=== PATIENT | female | born 1970 | race Caucasian/White ===

== ENCOUNTER 2017-10-29 10:08 | Emergency (ER) | payer MEDICAID ==
[~2017-10-29] VITALS: Ht 160 cm; Wt 81.8 kg
[~2017-10-29 10:08] MED LIST: CYCL-1 PO; NAPR-56 PO; NO HOME MEDS; ONDA4TAB12 PO
[2017-10-29 10:21] VITALS: BP 151/97
== END 2017-10-29 11:21 | disposition home or self-care (01) ==
LOC: ER 10:08
DX: S93.401A Sprain of unspecified ligament of right ankle, initial encounter (principal); I10 Essential (primary) hypertension; Z79.899 Other long term (current) drug therapy; X50.1XXA Overexertion from prolonged static or awkward postures, initial encounter; Y93.01 Activity, walking, marching and hiking; Y92.89 Other specified places as the place of occurrence of the external cause; Y99.8 Other external cause status
CPT/HCPCS: 73610; 73630; 99284; L4360

== ENCOUNTER 2021-07-22 00:59 | Emergency (ER) | payer MEDICAID ==
[~2021-07-22] VITALS: Ht 160 cm; Wt 81.8 kg
[2021-07-22 01:29] LABS: CLARITY,URINE SLIGHTLY CLOUDY (Clear); GLUCOSE, URINE NEGATIVE (Neg); KETONES,URINE NEGATIVE (Neg); LEUKOCYTE ESTERASE ,URINE LARGE (Neg); NITRITES, URINE POSITIVE (Neg); OCCULT BLOOD,URINE LARGE (Neg); PROTEIN,URINE 100 mg/dl (Neg)
[2021-07-22 01:36] LABS: COLOR,URINE DARK YELLOW (Yellow); UA COLLECTION TYPE CLN CATCH MIDSTREAM
[2021-07-22 01:37] LABS: WBC,URINE TNTC /HPF (0-4)
[2021-07-22 01:38] LABS: BACTERIA,URINE 3+ /HPF (Neg); MUCUS STRANDS NONE SEEN /LPF (Neg); RBC,URINE 20-50 /HPF (0-2); SQUAMOUS EPITHELIAL CELL,UR FEW /LPF (FEW); TRANSITIONAL EPI CELLS,URINE FEW /HPF; WBC CLUMPS,URINE MODERATE /HPF (NEGATIVE)
[2021-07-22] MEDS ORDERED: cephalexin 500mg capsule PO ONE (02:40)
[2021-07-22] MEDS ORDERED: CEPH-585 PO (02:41)
[2021-07-22 02:50] VITALS: BP 162/88
== END 2021-07-22 02:52 | disposition home or self-care (01) ==
LOC: ER 01:00
DX: N39.0 Urinary tract infection, site not specified (principal); R10.84 Generalized abdominal pain; R30.9 Painful micturition, unspecified; I10 Essential (primary) hypertension; Z98.51 Tubal ligation status; Z98.890 Other specified postprocedural states; Z72.89 Other problems related to lifestyle; Z79.899 Other long term (current) drug therapy
CPT/HCPCS: 81001; 87077; 87088; 87186; 99283

== ENCOUNTER 2023-07-24 07:38 | Emergency (ER) | payer MEDICAID ==
[~2023-07-24] VITALS: Ht 160 cm; Wt 69.5 kg
[2023-07-24 08:05] VITALS: BP 157/87; PULSE 79; RESP 14; O2SAT 100
[2023-07-24 10:01] LABS: BILIRUBIN,URINE NEGATIVE (Neg); CLARITY,URINE SLIGHTLY CLOUDY (Clear); COLOR,URINE YELLOW (Yellow); GLUCOSE, URINE NEGATIVE (Neg); KETONES,URINE NEGATIVE (Neg); LEUKOCYTE ESTERASE ,URINE NEGATIVE (Neg); NITRITES, URINE NEGATIVE (Neg); OCCULT BLOOD,URINE NEGATIVE (Neg); PROTEIN,URINE NEGATIVE (Neg); UROBILINOGEN,URINE 0.2 E.U/dL (0.2-1.0)
[2023-07-24 10:04] LABS: UA COLLECTION TYPE CLN CATCH MIDSTREAM
[2023-07-24 10:10] LABS: SQUAMOUS EPITHELIAL CELL,UR MANY /LPF (FEW)
[2023-07-24 10:11] LABS: MUCUS STRANDS MANY /LPF (Neg)
[2023-07-24 10:12] LABS: BACTERIA,URINE FEW /HPF (Neg); RBC,URINE 0-2 /HPF (0-2); WBC,URINE 0-4 /HPF (0-4)
[2023-07-24] MEDS ORDERED: CEPH-585 PO (10:16)
[2023-07-24 10:29] VITALS: TEMP 98.3
== END 2023-07-24 10:30 | disposition home or self-care (01) ==
LOC: ER 07:38
DX: N39.0 Urinary tract infection, site not specified (principal); I10 Essential (primary) hypertension; Z72.89 Other problems related to lifestyle; Z87.442 Personal history of urinary calculi; Z98.890 Other specified postprocedural states; Z79.2 Long term (current) use of antibiotics; Z79.899 Other long term (current) drug therapy
CPT/HCPCS: 81001; 99283

== ENCOUNTER → 2023-10-12 | Outpatient (CLI) | payer MEDICAID ==
[~2023-10-12] MED LIST changes: +CEPH-585 PO
== END | disposition home or self-care (01) ==
LOC: RAD 07:41
PROVIDERS: ATTEND Family Medicine
DX: D25.9 Leiomyoma of uterus, unspecified (principal); N83.209 Unspecified ovarian cyst, unspecified side
CPT/HCPCS: 76830; 76856; 93976

== ENCOUNTER 2024-07-08 01:33 | Emergency (ER) | payer MEDICAID ==
[~2024-07-08] VITALS: Ht 160 cm; Wt 78.6 kg
[~2024-07-08 01:33] MED LIST changes: +ONDA-243 PO; -ONDA4TAB12 PO
[2024-07-08] MEDS ORDERED: PRED20TA PO (03:20)
[2024-07-08] MEDS: predniSONE 20 mg tablet PO ONE (03:29)
[2024-07-08] MEDS: famotidine 20mg tablet PO ONE (03:29)
[2024-07-08 03:32] VITALS: BP 142/82; PULSE 80; RESP 14; TEMP 98.3; O2SAT 97
== END 2024-07-08 03:33 | disposition home or self-care (01) ==
LOC: ER 01:33
DX: L50.9 Urticaria, unspecified (principal); R51.9 Headache, unspecified; I10 Essential (primary) hypertension; Z98.51 Tubal ligation status
CPT/HCPCS: 99283; J7512

== ENCOUNTER 2024-07-15 09:27 | Emergency (ER) | payer MEDICAID ==
[~2024-07-15] VITALS: Ht 160 cm; Wt 78.3 kg
[~2024-07-15 09:27] MED LIST changes: +PRED20TA PO
[2024-07-15 09:28] VITALS: BP 152/91; PULSE 84; O2SAT 99
[2024-07-15 10:50] VITALS: RESP 17; TEMP 99.2
== END 2024-07-15 10:35 | disposition home or self-care (01) ==
LOC: ER 09:27
DX: L50.9 Urticaria, unspecified (principal); I10 Essential (primary) hypertension; Z98.51 Tubal ligation status; Z98.890 Other specified postprocedural states; Z87.440 Personal history of urinary (tract) infections
CPT/HCPCS: 99281

== ENCOUNTER 2025-02-10 09:27 | Emergency (ER) | payer MEDICAID ==
[~2025-02-10] VITALS: Ht 160 cm; Wt 81.4 kg
[~2025-02-10 09:27] MED LIST changes: -CEPH-585 PO; -PRED20TA PO
[2025-02-10 09:33] VITALS: PULSE 90; RESP 18; TEMP 98.3; O2SAT 98
[2025-02-10 10:45] LABS: LEUKOCYTE ESTERASE ,URINE NEGATIVE (Neg); NITRITES, URINE NEGATIVE (Neg); OCCULT BLOOD,URINE NEGATIVE (Neg)
[2025-02-10 10:49] LABS: URINE HCG NEGATIVE (NEG)
[2025-02-10 10:50] LABS: UA COLLECTION TYPE CLN CATCH MIDSTREAM
[2025-02-10 10:52] LABS: AMORPHOUS URATES 1+; MUCUS STRANDS MODERATE /LPF (Neg); SQUAMOUS EPITHELIAL CELL,UR MODERATE /LPF (FEW)
--- NOTE | 2025-02-10 11:27 | Physician Documentation ---
History of Present Illness ~ Chief Complaint: Urinary Symptoms Stated Complaint: POSS UTI Time Seen by MD: 11:04 OK to notify your PCP?: Yes Primary Medical Doctor: [facility] Source: patient Mode of Arrival: POV Exam Limitations: no limitations HPI 54-year-old female who is here due to odorous and cloudy urine which she states she noticed this morning. She recently completed Cipro for urinary tract infection and was not sure if she needed to get another antibiotic as she states I only took it for a week. she does report that she brought the culture report from the recent culture that was taken which showed sensitivity to Cipro. She denies pain with urination, flank pain, fever, chills, vomiting, vaginal pain or itching. Medication Reconciliation Allergies: Coded Allergies: No Known Allergies (Unverified , 03/26/24) Scheduled Naproxen (Naproxen), 1 TAB PO Q12H, (Reported) Scheduled PRN Cyclobenzaprine* (Cyclobenzaprine*), 1 TABLET PO Q8H PRN for muscle spasms, (Reported) ONDANSETRON ODT 4mg tablet (Ondansetron Odt), 1 TABLET PO Q6H PRN for nausea/vomiting Miscellaneous Medications Home Med List (No Home Medications), (Reported) Past Medical History Past Medical History: No Pertinent History, Hypertension, Kidney Stones, UTI, *DERMATOLOGY* Past Surgical History: , tubal ligation Alcohol Use: Occasionally Drug Use: none Lives with: Spouse Lives In: Home Review of Systems All Other Systems at this time: Reviewed and Negative Physical Exam Vital Signs: Temperature: 98.3, Source: Temporal, Heart Rate: 90, Respiratory Rate: 18, Pulse Oximetry: 98, Weight: 81.400 Oxygen Flow Rate: 0 Physical Exam GENERAL: Alert, no acute distress. HEENT: NCAT, EOMI, PERRL, normal oropharynx, moist oral mucosa. NECK: Supple, trachea midline. CARDIAC: Regular rate and rhythm, no murmurs, rubs, or gallops. Equal distal pulses. No lower extremity edema, cap refill less than 2 seconds. RESPIRATORY: Equal breath sounds, clear to auscultation bilaterally, no respiratory distress. GASTROINTESTINAL: Non distended, soft, nontender, No guarding or rebound. MUSCULOSKELETAL: Normal gait. NEUROLOGICAL: Awake, alert, and oriented x 3. SKIN: Warm/dry, no pallor, no rash. PSYCH: Alert and appropriate. Affect congruent with mood. Speech is clear. Good eye contact. Progress Results/Orders Reviewed/noted all lab results: Yes Results/Orders Vital Signs 02/10/25 09:33 Temp 98.3 Pulse 90 Resp 18 Pulse Ox 98 O2 Flow Rate 0 Laboratory Tests Test 02/10/25 10:10 Urine Specimen Description Cln catch midstream Urine Color Yellow Urine Clarity Slightly cloudy Urine pH 6.0 Urine Specific [place] 1.025 Urine Protein Negative Urine Glucose (UA) Negative Urine Ketones Trace H Urine Occult Blood Negative Urine Nitrite Negative Urine Bilirubin Negative Urine Urobilinogen 0.2 Urine Leukocyte Esterase Negative Urine RBC 0-2 Urine WBC 0-4 Urine Squamous Epithelial Cells Moderate Urine Transitional Epithelial Cells Few Urine Amorphous Urates 1+ Urine Bacteria Few Urine Mucus Moderate Urine Culture Indicated Not ind Volume Urine Centrifuged 10 ml Urine HCG, Qualitative Negative Urine Comment Medical Decision Making Additional information obtaine: N/A Findings n/a Urinary Diff Dx:Considerations: Include: AAA, , Aortic dissection, Appendicitis, Bowel obstruction, Cholelithiasis, Choleangitis, DJD, Ectopic , Hepatitis, HNP, Impaction, Intrauterine , Musculoskeletal pain, Ovarian torsion, Pancreatitis, PID, Post-Op complication, Pyelonephritis, Renal failure, Strain, Urinary Obstruction, Urolithiasis, Urinary retention, UTI, Vaginitis Genital Diff Dx:Considerations: Include: -Complete, - Incomplete, -Inevitable, Ablortion-Missed, -Threatened, Abruptio placentae, Bartholin abscess, Bartholin cyst, Blood loss anemia, Constipation, Cervicitis, Dsymenorrhea, Ectopic , Foreign body, Hormonal, Hidradenitis suppurativa, Intrauterine , Menorrhagia, Menometrorrhagia, Menstrual bleeding, Myomatous uterus, Perianal abscess, Physiologic discharge, Pinworms, PID, Placenta previa, , Precipitous Hct, Trauma, UTI, Vaginitis(osis)-Atrophic, Vaginitis, Vaginitis(osis)-Bacterial, Vaginitis(osis)- Candidal, Vaginitis(osis)-Contact, Vaginitis(osis)-Herpes, Vaginitis(osis)- Trich. Additional Comment Cloudy urine alone would not be an indication to treat a UTI in a patient without symptoms or concerns who is not and not going in for surgery; however, regardless her urinalysis here was negative. Departure Time of Disposition: 11:24 Disposition: 01 HOME / SELF CARE / HOMELESS Impression: Primary Impression: Cloudy urine Condition: Stable Discharge Instructions: General Discharge Instructions Additional Instructions: Urine was negative for infection Referrals: NO PRIMARY CARE PROVIDER (PCP) Education Educated: Patient Educated regarding: diagnosis, treatment, need for follow up Signature Scribe Signature: x Attestation: ELIAS Flaherty Feb 10, 2025 11:27
== END 2025-02-10 11:38 | disposition home or self-care (01) ==
LOC: ER 09:27
DX: R35.0 Frequency of micturition (principal); I10 Essential (primary) hypertension; Z98.51 Tubal ligation status; Z79.899 Other long term (current) drug therapy; Z87.442 Personal history of urinary calculi; Z72.89 Other problems related to lifestyle
CPT/HCPCS: 81001; 81025; 99283